=== PATIENT | male | born 1985 | race Caucasian/White ===

== ENCOUNTER → 2019-07-11 | Emergency (ER) | payer MEDICARE, OTHER ==
[~2019-07-11] VITALS: Ht 170.2 cm; Wt 108.9 kg
[2019-07-11 15:20] VITALS: BP 200/80
== END | disposition home or self-care (01) ==
LOC: ER 14:46
DX: S01.511A Laceration without foreign body of lip, initial encounter (principal); S80.212A Abrasion, left knee, initial encounter; S50.811A Abrasion of right forearm, initial encounter; X58.XXXA Exposure to other specified factors, initial encounter; Y93.89 Activity, other specified; Y92.89 Other specified places as the place of occurrence of the external cause; Y99.8 Other external cause status

== ENCOUNTER 2019-11-18 10:23 | Emergency (ER) | payer MEDICARE, OTHER ==
[~2019-11-18] VITALS: Ht 170.2 cm; Wt 90.7 kg
[2019-11-18 16:08] VITALS: BP 123/69
== END 2019-11-18 16:06 | disposition home or self-care (01) ==
LOC: ER 10:23
DX: R06.02 Shortness of breath (principal); F19.10 Other psychoactive substance abuse, uncomplicated; Z20.828 Contact with and (suspected) exposure to other viral communicable diseases; F17.210 Nicotine dependence, cigarettes, uncomplicated
CPT/HCPCS: 36415; 71045; 87426; 99284; C9803; U0003

== ENCOUNTER 2020-05-25 20:54 | Emergency (ER) | payer MEDICARE, OTHER ==
[~2020-05-25] VITALS: Ht 170.2 cm; Wt 108.9 kg
[2020-05-26 00:25] VITALS: BP 116/86
== END 2020-05-26 03:29 | disposition home or self-care (01) ==
LOC: ER 20:54
DX: J38.7 Other diseases of larynx (principal); F17.210 Nicotine dependence, cigarettes, uncomplicated
CPT/HCPCS: 76536